=== PATIENT | male | born 1960 | race Two or more races ===

== ENCOUNTER 2021-07-08 21:42 | Emergency (ER) | payer OTHER ==
[~2021-07-08] VITALS: Ht 162.6 cm; Wt 88.0 kg
[2021-07-08 21:42] VITALS: BP 137/80
[2021-07-08] MEDS ORDERED: ACETAMINOPHEN 500 MG TAB PO ONE (22:00)
== END 2021-07-09 00:37 | disposition left against medical advice (07) ==
LOC: ER 21:45
DX: R50.9 Fever, unspecified (principal); Z53.21 Procedure and treatment not carried out due to patient leaving prior to being seen by health care provider